=== PATIENT | female | born 1970 | race Hispanic/Latino ===

== ENCOUNTER → 2018-11-20 | Day surgery (SDC) | payer OTHER ==
[2018-11-16 09:34] LABS: BASOPHILS % 0.3 % (0.0-1.0); EOSINOPHILS # (AUTO) 0.1 (0.0-0.4); EOSINOPHILS % 1.5 % (0.0-6.0); HEMATOCRIT 41.7 % (34.2-44.1); HEMOGLOBIN 13.4 g/dL (12.0-16.0); LYMPHOCYTES # (AUTO) 2.8 (1.0-3.2); LYMPHOCYTES % 39.6 % (18.0-39.1); MEAN CORPUSCULAR HEMOGLOBIN 29.1 pg (28-32); MEAN CORPUSCULAR HGB CONC 32.1 g/dL (31-35); MEAN CORPUSCULAR VOLUME 90.5 fL (81-99); MONOCYTES # (AUTO) 0.7 (0.2-0.8); MONOCYTES % 9.3 % (4.4-11.3); NEUTROPHILS # (AUTO) 3.5 (2.1-6.9); PLATELET COUNT 217 x10e3/uL (140-360); RED BLOOD COUNT 4.61 x10e6/uL (3.6-5.1); RED CELL DISTRIBUTION WIDTH 12.5 % (11.7-14.4)
[~2018-11-20] MED LIST: ACETAMINOPHEN 1000 MG/100 ML 100 ML IV ONE; BUPIVACAINE 0.25%/EPI 30ML SDV INJ ONE; DEXAMETHASONE SOD PHOS INJ 4 MG/ML VIAL ONE; FENTANYL CITRATE/PF 100MCG/2 ML INJ ONE; HYDROMORPHONE 2MG/ML 2 MG/ML ML ONE; KETOROLAC TROMETHAMINE 30 MG/ML VIAL ONE; LIDOCAINE HCL 2% LOCAL INJ 5 ML SDV VIAL INJ ONE; LOSARTAN POTAS100 MG PO; MIDAZOLAM HCL 2 MG/2 ML VIAL ONE; ONDANSETRON HCL INJ 2MG/ML 2ML 2 MG/ML VIAL ONE; PROPOFOL IV EMULSION 10 MG/ML 20 ML VIAL ONE; ROCURONIUM BROMIDE 10 MG/ML 5ML VIAL ONE; SEVOFLURANE INHAL SOLN 250 ML PEN BTL ONE
[2018-11-20 15:34] VITALS: BP 127/80
--- NOTE | 2018-11-20 21:01 | Operative Report ---
DATE OF PROCEDURE: 11/20/2018 SURGEON: Carlos Iglesias MD PREOPERATIVE DIAGNOSIS: Ventral hernia. POSTOPERATIVE DIAGNOSIS: Ventral hernia. OPERATION PERFORMED: Repair of ventral hernia with Ventralex patch. PRESIDENT AND CHIEF EXECUTIVE OFFICER: HERNANDEZ Taylor. ANESTHESIA: General. COMPLICATIONS: None. ESTIMATED BLOOD LOSS: Minimal. INDICATION: The patient was lying in bed in supine position under good general endotracheal anesthesia. The abdomen was prepped with Betadine solution and draped in the usual manner. A similar subumbilical incision was made, carried down through the subcutaneous tissue down to the fascia. A large hernia sac was encountered, which was then slowly and carefully with normal fascia all the way around. The umbilicus was then detached from the hernia. The hernia sac was then opened and the contents were reduced back to the intraabdominal cavity. The excess of the hernia sac was then resected. After this was done, the fascia was clear all the way around. There was actually a 2nd smaller defect laterally and this was similarly reduced. After this was done, a large Ventralex patch was then placed through the defect into the intraabdominal cavity and deployed without any difficulty and the defect was then closed transversely using interrupted sutures of 0 Ethibond anchoring the mesh with the sutures on the way out. The whole area was then thoroughly irrigated. Perfect hemostasis was ascertained. The fascia was then infiltrated with 0.25% Marcaine. The umbilicus was then tacked back down to the midline with 3-0 Vicryl. The subcutaneous tissue was approximated with 3-0 Vicryl and the skin was closed with interrupted vertical mattress sutures of 3-0 silk. A dressing was applied. The sponge, lap, and needle count was correct. The patient tolerated the procedure well and returned to the recovery room in stable condition. MD BROOKS SloanR/MODL /[id number]
== END | disposition home or self-care (01) ==
LOC: OR 06:31
PROVIDERS: ATTEND Surgery
DX: K43.9 Ventral hernia without obstruction or gangrene (principal); I10 Essential (primary) hypertension; Z88.6 Allergy status to analgesic agent; Z01.810 Encounter for preprocedural cardiovascular examination; Z01.812 Encounter for preprocedural laboratory examination
CPT/HCPCS: 36415; 49560 ×2; 49568; 81025; 85025; 93005; C1781; J0131; J1100; J1170; J1885; J2001; J2250; J2405; J2704